=== PATIENT | female | born 1965 | race Asian ===

== ENCOUNTER 2018-02-28 19:31 | Inpatient (IN) | payer OTHER ==
[~2018-02-28] VITALS: Ht 157.5 cm; Wt 72.0 kg
[2018-02-28 19:42] LABS: GLUCOSE,POINT OF CARE 211 MG/DL (70-110)
[2018-02-28] MEDS ORDERED: METF-444 PO (19:49)
[2018-02-28] MEDS ORDERED: METO25XL PO (19:49)
[2018-02-28] MEDS ORDERED: RANO500T3 PO (19:49)
[2018-02-28] MEDS ORDERED: EMPA10TA PO (19:49)
[2018-02-28] MEDS ORDERED: ASPIRIN 325 MG TABLET PO ONE (20:15)
[2018-02-28] MEDS ORDERED: ONDANSETRON HCL 4 MG/2 ML VIAL IVP ONE (20:15)
[2018-02-28] MEDS ORDERED: MORPHINE SULFATE 4 MG/ML SYRINGE IVP ONE (20:15)
[2018-02-28] MEDS ORDERED: NITROGLYCERIN 2% (1 GM=INCH) PACKET TP ONE (20:15)
[2018-02-28 20:25] LABS: BASOPHILS % (AUTO) 0.8 % (0.0-2.0); EOSINOPHILS % (AUTO) 1.6 % (1.0-6.0); HEMATOCRIT 38.7 % (36-46); HEMOGLOBIN 13.2 g/dL (12.0-16.0); LYMPHOCYTES # (AUTO) 3.8 K/uL (1.0-4.8); LYMPHOCYTES % (AUTO) 36.2 % (22.0-44.0); MEAN CORPUSCULAR HGB CONC 34.1 G/dL (31.0-37.0); MEAN CORPUSCULAR VOLUME 82 fL (80-100); MONOCYTES # (AUTO) 0.5 K/uL (0.1-1.0); MONOCYTES % (AUTO) 4.6 % (2.0-9.0); NEUTROPHILS % (AUTO) 56.8 % (40.0-70.0); PLATELET COUNT (AUTO) 385 K/uL (150-450); RED BLOOD CELL COUNT(AUTO) 4.72 MIL/uL (4.00-5.20); RED CELL DISTRIBUTION WIDTH 13.8 % (11.5-14.5)
[2018-02-28 20:30] LABS: INR 0.9 (0.9-1.1); PROTHROMBIN TIME 9.9 SEC (9.4-11.6)
[2018-02-28] MEDS ORDERED: ATOR20TA86 PO (20:33)
[2018-02-28] MEDS ORDERED: METO25 PO (20:33)
[2018-02-28] MEDS ORDERED: LEVO75 PO (20:33)
[2018-02-28 20:34] LABS: APPEARANCE,URINE CLEAR (CLEAR)
[2018-02-28 20:35] LABS: BILIRUBIN,URINE NEGATIVE (NEGATIVE); GLUCOSE, URINE (UA) >=1000 mg/dL (NEGATIVE); KETONES,URINE NEGATIVE (NEGATIVE); LEUKOCYTE ESTERASE ,URINE NEGATIVE (NEGATIVE); NITRATE,URINE NEGATIVE (NEGATIVE); OCCULT BLOOD,URINE NEGATIVE (NEGATIVE); PH,URINE 6.5 (5.0-8.0); PROTEIN,URINE NEGATIVE (NEGATIVE); UROBILINOGEN,URINE 0.2 mg/dL (<=1.0)
[2018-02-28 20:39] LABS: BACTERIA,URINE None Seen /HPF (None Seen); RBC,URINE None Seen /HPF (0-2); SQUAMOUS EPITHELIAL CELL,UR Few /LPF (None Seen); WBC,URINE 0-2 /HPF (0-5)
[2018-02-28 20:48] LABS: B-TYPE NATRIURETIC PEPTIDE < 5 pg/mL (0-100)
[2018-02-28 20:52] LABS: ALANINE AMINOTRANSFERASE 35 U/L (12-78); ALKALINE PHOSPHATASE 107 U/L (46-116); ASPARTATE AMINOTRANSFERASE 24 U/L (15-37); BILIRUBIN,TOTAL 0.3 mg/dL (0.1-1.0); CALCIUM, TOTAL 9.3 mg/dL (8.8-10.5); CHLORIDE 100 mmol/L (98-107); CREATINE KINASE, TOTAL 111 U/L (26-192); CREATININE 0.99 mg/dL (0.60-1.30); GLOMERULAR FILTR. RATE CALC 59 mL/min (>60); GLUCOSE,RANDOM 186 mg/dL (70-110); POTASSIUM 4.1 mmol/L (3.5-5.1); SODIUM SERUM 137 mmol/L (136-145); TOTAL PROTEIN, SERUM 8.4 g/dL (6.4-8.2); UREA NITROGEN, BLOOD 18 mg/dL (7-18)
[2018-02-28 20:55] LABS: ANION GAP 10 mmol/L (8-16); CARBON DIOXIDE 27 mmol/L (22-29)
[2018-02-28] MEDS ORDERED: ACETAMINOPHEN 325 MG TABLET PO PRN (21:30)
[2018-02-28] MEDS ORDERED: 0.9% SODIUM CHLORIDE 10 ML SYRINGE IVP PRN (21:30)
[2018-02-28] MEDS ORDERED: ONDANSETRON HCL 4 MG/2 ML VIAL IVP PRN (21:30)
[2018-02-28] MEDS ORDERED: MORPHINE SULFATE 4 MG/ML SYRINGE IVP PRN (21:30)
[2018-02-28 21:53] LABS: D-DIMER 0.23 mg/L FEU (0.00-0.50)
[2018-02-28 22:56] VITALS: BP 139/65
[2018-02-28] MEDS ORDERED: DEXTROSE 50%-WATER 25 GM/50 ML SYRINGE IVP PRN ×2 (23:00)
[2018-02-28] MEDS: ATORVASTATIN CALCIUM 20 MG TABLET PO SCH (23:00)
[2018-02-28] MEDS ORDERED: EMPAGLIFLOZIN 10 MG PO SCH (23:00)
[2018-02-28] MEDS ORDERED: INSULIN LISPRO 100 UNITS/ML SQ PRN (23:00)
[2018-02-28] MEDS: RANOLAZINE 500 MG SR TABLET PO SCH (23:00)
[2018-03-01] MEDS ORDERED: MORPHINE SULFATE 4 MG/ML SYRINGE IVP PRN (03:45)
[2018-03-01] MEDS: ACETAMINOPHEN 325 MG TABLET PO PRN ×3 (04:52→22:22)
[2018-03-01 05:09] VITALS: BP 131/74
[2018-03-01] MEDS: LEVOTHYROXINE SODIUM 75 MCG TABLET PO SCH (06:24)
[2018-03-01 07:04] VITALS: BP 109/70
[2018-03-01] MEDS: METOPROLOL TARTRATE 25 MG TABLET PO SCH (08:45)
[2018-03-01] MEDS: RANOLAZINE 500 MG SR TABLET PO SCH ×2 (08:45→20:35)
[2018-03-01] MEDS: MetFORMIN HCL 500 MG TABLET PO SCH (08:45)
[2018-03-01 08:58] LABS: BASOPHILS % (AUTO) 0.7 % (0.0-2.0); EOSINOPHILS % (AUTO) 1.6 % (1.0-6.0); HEMATOCRIT 37.9 % (36-46); LYMPHOCYTES # (AUTO) 2.5 K/uL (1.0-4.8); LYMPHOCYTES % (AUTO) 26.2 % (22.0-44.0); MEAN CORPUSCULAR HGB CONC 34.2 G/dL (31.0-37.0); MEAN CORPUSCULAR VOLUME 82 fL (80-100); MONOCYTES # (AUTO) 0.4 K/uL (0.1-1.0); MONOCYTES % (AUTO) 3.7 % (2.0-9.0); NEUTROPHILS # (AUTO) 6.5 K/uL (1.8-7.7); NEUTROPHILS % (AUTO) 67.8 % (40.0-70.0); PLATELET COUNT (AUTO) 365 K/uL (150-450); RED BLOOD CELL COUNT(AUTO) 4.63 MIL/uL (4.00-5.20); RED CELL DISTRIBUTION WIDTH 13.9 % (11.5-14.5)
[2018-03-01 09:16] LABS: ALANINE AMINOTRANSFERASE 36 U/L (12-78); ALBUMIN 3.8 g/dL (3.4-5.0); ALKALINE PHOSPHATASE 93 U/L (46-116); ANION GAP 10 mmol/L (8-16); ASPARTATE AMINOTRANSFERASE 26 U/L (15-37); BILIRUBIN,TOTAL 0.6 mg/dL (0.1-1.0); CARBON DIOXIDE 25 mmol/L (22-29); CHLORIDE 101 mmol/L (98-107); GLOMERULAR FILTR. RATE CALC > 60 mL/min (>60); GLUCOSE,RANDOM 231 mg/dL (70-110); POTASSIUM 4.1 mmol/L (3.5-5.1); SODIUM SERUM 136 mmol/L (136-145); UREA NITROGEN, BLOOD 15 mg/dL (7-18)
[2018-03-01 11:01] VITALS: BP 125/52
[2018-03-01] MEDS: NITROGLYCERIN 2% (1 GM=INCH) PACKET TP SCH ×3 (12:10→23:00)
[2018-03-01] MEDS: INSULIN LISPRO 100 UNITS/ML SQ PRN ×3 (12:11→22:23)
[2018-03-01 15:06] VITALS: BP 111/55
[2018-03-01 18:08] LABS: GLUCOMETER DEV NAME(LOC) 5S 2Q; GLUCOSE,POINT OF CARE 256 MG/DL (70-110)
[2018-03-01 18:38] LABS: GLUCOMETER DEV NAME(LOC) 5N 1P; GLUCOSE,POINT OF CARE 198 MG/DL (70-110)
[2018-03-01 18:38] LABS: GLUCOMETER DEV NAME(LOC) 5N 1P; GLUCOSE,POINT OF CARE 150 MG/DL (70-110)
[2018-03-01 19:13] VITALS: BP 123/72
[2018-03-01] MEDS: ATORVASTATIN CALCIUM 20 MG TABLET PO SCH (20:35)
[2018-03-01 23:08] VITALS: BP 126/77
[2018-03-02] VITALS (7 sets, daily range): BP systolic 121–142; BP diastolic 62–81
[2018-03-02] MEDS: LEVOTHYROXINE SODIUM 75 MCG TABLET PO SCH (06:08)
[2018-03-02] MEDS: NITROGLYCERIN 2% (1 GM=INCH) PACKET TP SCH ×3 (06:14→17:45)
[2018-03-02] MEDS ORDERED: REGADENOSON 0.4 MG/5 ML PF SYRINGE IVP ONE ×2 (09:39→16:45)
[2018-03-02] MEDS ORDERED: SESTAMIBI TC99M/UD ISOTOPE 1 EA INJ INJ ONE ×2 (09:40→13:55)
[2018-03-02] MEDS: RANOLAZINE 500 MG SR TABLET PO SCH ×2 (10:37→22:02)
[2018-03-02] MEDS: METOPROLOL TARTRATE 25 MG TABLET PO SCH (10:37)
[2018-03-02] MEDS: MetFORMIN HCL 500 MG TABLET PO SCH (10:37)
[2018-03-02 11:28] LABS: GLUCOMETER DEV NAME(LOC) 5S 2Q; GLUCOSE,POINT OF CARE 353 MG/DL (70-110)
[2018-03-02 11:28] LABS: GLUCOMETER DEV NAME(LOC) 5S 2Q; GLUCOSE,POINT OF CARE 171 MG/DL (70-110)
[2018-03-02 11:28] LABS: GLUCOMETER DEV NAME(LOC) 5S 2Q; GLUCOSE,POINT OF CARE 288 MG/DL (70-110)
[2018-03-02 11:33] LABS: GLUCOMETER DEV NAME(LOC) 5N 1P; GLUCOSE,POINT OF CARE 323 MG/DL (70-110)
[2018-03-02] MEDS: INSULIN LISPRO 100 UNITS/ML SQ PRN ×3 (12:23→22:03)
[2018-03-02] MEDS: ACETAMINOPHEN 325 MG TABLET PO PRN (17:45)
[2018-03-02 20:12] LABS: GLUCOMETER DEV NAME(LOC) 5S 2Q; GLUCOSE,POINT OF CARE 361 MG/DL (70-110)
[2018-03-02 20:12] LABS: GLUCOMETER DEV NAME(LOC) 5S 2Q; GLUCOSE,POINT OF CARE 306 MG/DL (70-110)
[2018-03-02] MEDS: ATORVASTATIN CALCIUM 20 MG TABLET PO SCH (22:02)
[2018-03-02 23:03] LABS: GLUCOMETER DEV NAME(LOC) 5S 2Q; GLUCOSE,POINT OF CARE 264 MG/DL (70-110)
[2018-03-03] VITALS (8 sets, daily range): BP systolic 119–150; BP diastolic 63–78
[2018-03-03] MEDS: NITROGLYCERIN 2% (1 GM=INCH) PACKET TP SCH ×4 (05:21→18:02)
[2018-03-03] MEDS: LEVOTHYROXINE SODIUM 75 MCG TABLET PO SCH (05:21)
[2018-03-03] MEDS: INSULIN LISPRO 100 UNITS/ML SQ PRN ×3 (05:22→21:30)
[2018-03-03 05:53] LABS: GLUCOMETER DEV NAME(LOC) 5S 2Q; GLUCOSE,POINT OF CARE 214 MG/DL (70-110)
[2018-03-03] MEDS: MetFORMIN HCL 500 MG TABLET PO SCH (08:00)
[2018-03-03] MEDS: RANOLAZINE 500 MG SR TABLET PO SCH ×2 (08:42→21:29)
[2018-03-03] MEDS: METOPROLOL TARTRATE 25 MG TABLET PO SCH (11:16)
[2018-03-03] MEDS ORDERED: SODIUM CHLORIDE 0.9% 1,000 ML IV ONE (11:45)
[2018-03-03] MEDS ORDERED: LIDOCAINE HCL/PF 1% 30 ML VIAL ONE (11:52)
[2018-03-03] MEDS ORDERED: SODIUM BICARBONATE 50 MEQ/50 ML VIAL ONE (11:52)
[2018-03-03] MEDS ORDERED: IOHEXOL 300 MG/ML 150 ML VIAL ONE (11:53)
[2018-03-03] MEDS ORDERED: MIDAZOLAM HCL 2 MG/2 ML VIAL ONE (13:07)
[2018-03-03] MEDS ORDERED: FentaNYL CITRATE-PF 100 MCG/2 ML VIAL ONE (13:07)
[2018-03-03] MEDS ORDERED: SODIUM CHLORIDE 0.9% 500 ML IV ONE (13:11)
[2018-03-03] MEDS ORDERED: HEPARIN SODIUM 2,000 UNITS in HEPARIN SODIUM 1000 UNITS/NS 1,000 ML IARTER ONE (13:11)
[2018-03-03] MEDS ORDERED: LIDOCAINE 1% 30 ML/SOD BICARB 8.4% 4 ML SQ ONE (13:15)
[2018-03-03] MEDS ORDERED: FentaNYL CITRATE-PF 100 MCG/2 ML VIAL IVP ONE (13:15)
[2018-03-03] MEDS ORDERED: IOHEXOL 300 MG/ML 150 ML VIAL IARTER ONE (13:15)
[2018-03-03] MEDS ORDERED: MIDAZOLAM HCL 2 MG/2 ML VIAL IVP ONE (13:15)
[2018-03-03] MEDS: ACETAMINOPHEN 325 MG TABLET PO PRN (15:00)
[2018-03-03] MEDS: ATORVASTATIN CALCIUM 20 MG TABLET PO SCH (21:30)
[2018-03-04 00:11] VITALS: BP 139/69
[2018-03-04] MEDS: NITROGLYCERIN 2% (1 GM=INCH) PACKET TP SCH ×3 (01:33→11:57)
[2018-03-04 04:26] VITALS: BP 124/78
[2018-03-04] MEDS: LEVOTHYROXINE SODIUM 75 MCG TABLET PO SCH (06:27)
[2018-03-04] MEDS: INSULIN LISPRO 100 UNITS/ML SQ PRN ×2 (06:30→11:58)
[2018-03-04 06:40] LABS: BASOPHILS % (AUTO) 0.6 % (0.0-2.0); EOSINOPHILS % (AUTO) 2.5 % (1.0-6.0); HEMATOCRIT 37.3 % (36-46); HEMOGLOBIN 12.9 g/dL (12.0-16.0); LYMPHOCYTES # (AUTO) 2.4 K/uL (1.0-4.8); LYMPHOCYTES % (AUTO) 31.5 % (22.0-44.0); MEAN CORPUSCULAR HEMOGLOBIN 28.3 pg (26.0-34.0); MEAN CORPUSCULAR HGB CONC 34.5 G/dL (31.0-37.0); MEAN CORPUSCULAR VOLUME 82 fL (80-100); MONOCYTES # (AUTO) 0.4 K/uL (0.1-1.0); NEUTROPHILS # (AUTO) 4.4 K/uL (1.8-7.7); NEUTROPHILS % (AUTO) 59.4 % (40.0-70.0); PLATELET COUNT (AUTO) 334 K/uL (150-450); RED BLOOD CELL COUNT(AUTO) 4.56 MIL/uL (4.00-5.20); RED CELL DISTRIBUTION WIDTH 13.5 % (11.5-14.5)
[2018-03-04 07:10] VITALS: BP 121/73
[2018-03-04 07:18] LABS: GLUCOMETER DEV NAME(LOC) 5S 2Q; GLUCOSE,POINT OF CARE 284 MG/DL (70-110)
[2018-03-04 07:44] LABS: ANION GAP 10 mmol/L (8-16); CALCIUM, TOTAL 8.8 mg/dL (8.8-10.5); CARBON DIOXIDE 26 mmol/L (22-29); CHLORIDE 100 mmol/L (98-107); CREATININE 0.73 mg/dL (0.60-1.30); GLOMERULAR FILTR. RATE CALC > 60 mL/min (>60); GLUCOSE,RANDOM 249 mg/dL (70-110); POTASSIUM 4.3 mmol/L (3.5-5.1); SODIUM SERUM 136 mmol/L (136-145); UREA NITROGEN, BLOOD 14 mg/dL (7-18)
[2018-03-04] MEDS: MetFORMIN HCL 500 MG TABLET PO SCH (08:23)
[2018-03-04] MEDS: RANOLAZINE 500 MG SR TABLET PO SCH (08:23)
[2018-03-04] MEDS: METOPROLOL TARTRATE 25 MG TABLET PO SCH (08:23)
[2018-03-04 11:00] VITALS: BP 128/88
[2018-03-04 12:53] LABS: GLUCOMETER DEV NAME(LOC) 5N 1P; GLUCOSE,POINT OF CARE 215 MG/DL (70-110)
[2018-03-04 12:53] LABS: GLUCOMETER DEV NAME(LOC) 5N 1P; GLUCOSE,POINT OF CARE 342 MG/DL (70-110)
[2018-03-04 12:53] LABS: GLUCOMETER DEV NAME(LOC) 5N 1P; GLUCOSE,POINT OF CARE 309 MG/DL (70-110)
[2018-03-04 22:23] LABS: GLUCOMETER DEV NAME(LOC) 5S 2Q; GLUCOSE,POINT OF CARE 230 MG/DL (70-110)
== END 2018-03-04 13:30 | disposition home or self-care (01) | DRG 191 ==
LOC: EMS 19:31 → 5N 21:55
PROVIDERS: ADMIT Internal Medicine; ATTEND Internal Medicine
PROC: 4A023N7 Measurement of Cardiac Sampling and Pressure, Left Heart, Percutaneous Approach (ICD-10-PCS; principal; 2018-03-03)
PROC: B211YZZ Fluoroscopy of Multiple Coronary Arteries using Other Contrast (ICD-10-PCS; 2018-03-03)
PROC: B215YZZ Fluoroscopy of Left Heart using Other Contrast (ICD-10-PCS; 2018-03-03)
DX: I25.110 Atherosclerotic heart disease of native coronary artery with unstable angina pectoris (principal); E11.65 Type 2 diabetes mellitus with hyperglycemia; I10 Essential (primary) hypertension; R07.89 Other chest pain; E78.5 Hyperlipidemia, unspecified; E03.9 Hypothyroidism, unspecified; E11.9 Type 2 diabetes mellitus without complications; I25.10 Atherosclerotic heart disease of native coronary artery without angina pectoris; Z79.899 Other long term (current) drug therapy; Z79.84 Long term (current) use of oral hypoglycemic drugs
CPT/HCPCS: 78452; 83735; 84443; 85379; 93005; 93017; 93306; 96374; 96375; 99285; A9500; J1644; J2250; J2270; J2405; J2785; J3010; J3490; J7030; Q9967

== ENCOUNTER 2019-01-05 16:03 | Emergency (ER) | payer OTHER ==
[~2019-01-05] VITALS: Ht 157.5 cm; Wt 68.2 kg
[~2019-01-05 16:03] MED LIST: ATOR20TA86 PO; EMPA10TA PO; LEVO75 PO; METF-444 PO; METO25 PO; RANO500T3 PO
[2019-01-05 16:24] LABS: GLUCOSE,POINT OF CARE 429 MG/DL (70-110)
[2019-01-05] MEDS ORDERED: GLIP10 PO (16:29)
[2019-01-05 17:32] LABS: BASOPHILS % (AUTO) 0.7 % (0.0-2.0); EOSINOPHILS % (AUTO) 1.3 % (1.0-6.0); HEMATOCRIT 44.2 % (36-46); HEMOGLOBIN 14.5 g/dL (12.0-16.0); LYMPHOCYTES # (AUTO) 2.9 K/uL (1.0-4.8); LYMPHOCYTES % (AUTO) 31.4 % (22.0-44.0); MEAN CORPUSCULAR HEMOGLOBIN 28.1 pg (26.0-34.0); MEAN CORPUSCULAR HGB CONC 32.7 G/dL (31.0-37.0); MEAN CORPUSCULAR VOLUME 86 fL (80-100); MONOCYTES # (AUTO) 0.4 K/uL (0.1-1.0); MONOCYTES % (AUTO) 4.8 % (2.0-9.0); NEUTROPHILS # (AUTO) 5.7 K/uL (1.8-7.7); NEUTROPHILS % (AUTO) 61.8 % (40.0-70.0); PLATELET COUNT (AUTO) 354 K/uL (150-450); RED BLOOD CELL COUNT(AUTO) 5.15 MIL/uL (4.00-5.20); RED CELL DISTRIBUTION WIDTH 14.1 % (11.5-14.5)
[2019-01-05 17:42] LABS: ANION GAP 10 mmol/L (8-16); CALCIUM, TOTAL 10.1 mg/dL (8.8-10.5); CARBON DIOXIDE 28 mmol/L (22-29); CHLORIDE 96 mmol/L (98-107); CREATININE 0.75 mg/dL (0.60-1.30); GLOMERULAR FILTR. RATE CALC > 60 mL/min (>60); GLUCOSE,RANDOM 349 mg/dL (70-110); POTASSIUM 4.1 mmol/L (3.5-5.1); SODIUM SERUM 134 mmol/L (136-145); UREA NITROGEN, BLOOD 14 mg/dL (7-18)
[2019-01-05 17:47] LABS: ALANINE AMINOTRANSFERASE 21 U/L (12-78); ALBUMIN 4.2 g/dL (3.4-5.0); ALKALINE PHOSPHATASE 122 U/L (46-116); ASPARTATE AMINOTRANSFERASE 10 U/L (15-37); BILIRUBIN,TOTAL 0.6 mg/dL (0.1-1.0); TOTAL PROTEIN, SERUM 8.6 g/dL (6.4-8.2)
[2019-01-05 18:30] VITALS: BP 144/75
[2019-01-05] MEDS ORDERED: SODIUM CHLORIDE 0.9% 1,000 ML IV ONE (18:45)
[2019-01-05] MEDS ORDERED: INSULIN REGULAR, HUMAN 100 UNITS/ML SQ ONE (19:45)
[2019-01-05 20:53] LABS: GLUCOSE,POINT OF CARE 264 MG/DL (70-110)
== END 2019-01-05 20:49 | disposition home or self-care (01) ==
LOC: EMS 16:05
DX: E11.65 Type 2 diabetes mellitus with hyperglycemia (principal); I10 Essential (primary) hypertension; Z79.899 Other long term (current) drug therapy; Z91.14 Patient's other noncompliance with medication regimen
CPT/HCPCS: 36415; 80053; 82962; 84484; 85025; 96372; 99283; J1815; J7030

== ENCOUNTER 2020-04-08 14:12 | Emergency (ER) | payer OTHER ==
[~2020-04-08] VITALS: Ht 157.5 cm; Wt 65.9 kg
[~2020-04-08 14:12] MED LIST changes: +GLIP10 PO
[2020-04-08 15:04] VITALS: BP 125/97
== END 2020-04-08 15:09 | disposition home or self-care (01) ==
LOC: EMS 14:14
DX: Z11.59 Encounter for screening for other viral diseases (principal); E11.9 Type 2 diabetes mellitus without complications; I10 Essential (primary) hypertension; Z79.84 Long term (current) use of oral hypoglycemic drugs; Z79.899 Other long term (current) drug therapy
CPT/HCPCS: 99283; U0003

== ENCOUNTER 2023-03-01 13:27 | Emergency (ER) | payer OTHER ==
[~2023-03-01] VITALS: Ht 157.5 cm; Wt 75.0 kg
[~2023-03-01 13:27] MED LIST changes: +ATOR20TA PO; -ATOR20TA86 PO; -EMPA10TA PO; +EMPA10TA3 PO; -GLIP10 PO; +GLIP10TA10 PO; +RANO500T27 PO; -RANO500T3 PO
[2023-03-01] MEDS ORDERED: METO50 PO (13:57)
[2023-03-01] MEDS ORDERED: PANT40TA54 PO (13:57)
[2023-03-01] MEDS ORDERED: METF-446 PO (13:57)
[2023-03-01] MEDS ORDERED: SIMV-43 PO (13:57)
[2023-03-01] MEDS ORDERED: KETO-108 OU (13:57)
[2023-03-01] MEDS ORDERED: SEMA1PEN3 SQ (13:57)
[2023-03-01] MEDS ORDERED: LOSA-382 PO (13:57)
[2023-03-01] MEDS ORDERED: PIOG30TA70 PO (13:57)
[2023-03-01] MEDS ORDERED: PROP10DR2 OU (13:57)
[2023-03-01] MEDS ORDERED: MECL-68 PO (13:57)
[2023-03-01] MEDS ORDERED: DICL100G31 TP (13:57)
[2023-03-01] MEDS ORDERED: CETI1DRO OU (13:57)
[2023-03-01] MEDS ORDERED: HYDROCODONE/ACETAMINOPHEN 5-325 MG TABLET PO ONE (14:15)
[2023-03-01] MEDS ORDERED: KETOROLAC TROMETHAMINE 30 MG/ML VIAL IM ONE (14:15)
[2023-03-01] MEDS ORDERED: LIDOCAINE 5% TRANSDERMAL PATCH TD ONE (14:15)
[2023-03-01 15:39] LABS: APPEARANCE,URINE CLEAR (CLEAR); BILIRUBIN,URINE NEGATIVE (NEGATIVE); GLUCOSE, URINE (UA) NEGATIVE (NEGATIVE); KETONES,URINE NEGATIVE (NEGATIVE); LEUKOCYTE ESTERASE ,URINE NEGATIVE (NEGATIVE); NITRATE,URINE NEGATIVE (NEGATIVE); OCCULT BLOOD,URINE NEGATIVE (NEGATIVE); PH,URINE 5.5 (5.0-8.0); PROTEIN,URINE NEGATIVE (NEGATIVE); SPECIFIC GRAVITIY, URINE 1.008 (1.003-1.030); UROBILINOGEN,URINE <=1.0 mg/dL (<=1.0)
[2023-03-01] MEDS ORDERED: LIDO700A15 TP ×2 (16:15→16:28)
[2023-03-01] MEDS ORDERED: CYCL-448 PO ×2 (16:15→16:28)
[2023-03-01 16:28] VITALS: BP 144/79
== END 2023-03-01 16:37 | disposition home or self-care (01) ==
LOC: EMS 13:27
DX: M54.9 Dorsalgia, unspecified (principal); E11.9 Type 2 diabetes mellitus without complications; I10 Essential (primary) hypertension
CPT/HCPCS: 99284; 81003; 82962; 72100; 96372; J1885

== ENCOUNTER 2025-08-03 13:57 | Emergency (ER) | payer OTHER ==
[~2025-08-03] VITALS: Ht 157.5 cm; Wt 73.0 kg
[~2025-08-03 13:57] MED LIST changes: -ATOR20TA PO; +CETI1DRO OU; +CYCL-448 PO; +DICL2100G TP; -GLIP10TA10 PO; +GLIP10TA17 PO; +KETO-108 OU; +LIDO-57 TP; +LOSA-382 PO; +MECL-68 PO; -METF-444 PO; +METF-446 PO; -METO25 PO; +METO50 PO; +PANT40TA54 PO; +PIOG30TA70 PO; +PROP10DR2 OU; +SEMA1PEN3 SQ; +SIMV-43 PO
[2025-08-03 14:14] VITALS: BP 119/78; PULSE 76; RESP 18; TEMP 98.2; O2SAT 100
[2025-08-03 14:36] LABS: GLUCOMETER DEV NAME(LOC) ERT.7; GLUCOSE,POINT OF CARE 196 MG/DL (70-110)
[2025-08-03 14:53] LABS: PLATELET COUNT (AUTO) 339 K/uL (150-450); RED BLOOD CELL COUNT(AUTO) 4.95 MIL/uL (4.00-5.20); RED CELL DISTRIBUTION WIDTH 15.0 % (11.5-14.5); WHITE BLOOD COUNT (AUTO) 7.3 K/uL (4.5-11.0)
[2025-08-03 15:00] LABS: CALCIUM, TOTAL 9.7 mg/dL (8.8-10.5); CREATININE 0.99 mg/dL (0.60-1.30); GLOMERULAR FILTR. RATE CALC 58 mL/min (>60); GLUCOSE,RANDOM 181 mg/dL (70-110); SODIUM SERUM 138 mmol/L (136-145); UREA NITROGEN, BLOOD 14 mg/dL (7-18)
[2025-08-03 15:07] LABS: TROPONIN I-HIGH SENSITIVITY 15 ng/L (<51)
[2025-08-03] MEDS: ACETAMINOPHEN 500 MG TABLET PO ONE (16:06)
[2025-08-03] MEDS: KETOROLAC TROMETHAMINE 30 MG/ML VIAL IM ONE (16:06)
[2025-08-03] MEDS ORDERED: ACET-3385 PO (16:07)
[2025-08-03] MEDS ORDERED: LIDO-57 TP (16:07)
[2025-08-03] MEDS ORDERED: IBUP-1492 PO (16:07)
[2025-08-03] MEDS: LIDOCAINE 5% TRANSDERMAL PATCH TD ONE (16:07)
== END 2025-08-03 16:16 | disposition home or self-care (01) ==
LOC: EMS 14:03
DX: S16.1XXA Strain of muscle, fascia and tendon at neck level, initial encounter (principal); R51.9 Headache, unspecified; E11.9 Type 2 diabetes mellitus without complications; I10 Essential (primary) hypertension; Z79.84 Long term (current) use of oral hypoglycemic drugs; Z79.85 Long-term (current) use of injectable non-insulin antidiabetic drugs; Z79.899 Other long term (current) drug therapy; X50.0XXA Overexertion from strenuous movement or load, initial encounter; Y93.89 Activity, other specified; Y92.89 Other specified places as the place of occurrence of the external cause; Y99.8 Other external cause status
CPT/HCPCS: 99284; 80048; 82962; 83690; 84484; 85025; 36415; 93005; 96372; J1885